=== PATIENT | female | born 1990 | race Caucasian/White ===

== ENCOUNTER 2019-03-29 06:40 | Emergency (ER) | payer OTHER ==
[~2019-03-29] VITALS: Ht 157.5 cm; Wt 52.3 kg
[2019-03-29 07:15] LABS: GLUCOSE, URINE (UA) NEGATIVE (NEGATIVE); KETONES,URINE TRACE mg/dL (NEGATIVE); LEUKOCYTE ESTERASE ,URINE LARGE (NEGATIVE); NITRATE,URINE POSITIVE (NEGATIVE); OCCULT BLOOD,URINE LARGE (NEGATIVE); PH,URINE 5.5 (5.0-8.0); PROTEIN,URINE SEE CONFIRM (NEGATIVE)
[2019-03-29 07:16] LABS: APPEARANCE,URINE CLOUDY (CLEAR); BILIRUBIN,URINE PRELIM. POSITIVE (NEGATIVE)
[2019-03-29 07:20] LABS: RBC,URINE Full Field /HPF (0-2); SULFOSALICYLIC ACID,URINE 1+ (Negative)
[2019-03-29 07:21] LABS: BACTERIA,URINE None Seen /HPF (None Seen); SQUAMOUS EPITHELIAL CELL,UR Rare /LPF (None Seen)
[2019-03-29] MEDS ORDERED: ACETAMINOPHEN 500 MG TABLET PO ONE (08:00)
[2019-03-29] MEDS ORDERED: CEPHALEXIN MONOHYDRATE 500 MG CAPSULE PO ONE (08:00)
[2019-03-29] MEDS ORDERED: PHENAZOPYRIDINE HCL 100 MG TABLET PO ONE (08:00)
[2019-03-29 08:58] VITALS: BP 106/75
== END 2019-03-29 08:59 | disposition home or self-care (01) ==
LOC: EMS 06:40
DX: N39.0 Urinary tract infection, site not specified (principal)
CPT/HCPCS: 87086

== ENCOUNTER 2021-08-30 23:12 | Emergency (ER) | payer OTHER ==
[~2021-08-30] VITALS: Ht 162.6 cm; Wt 56.8 kg
[2021-08-30] MEDS ORDERED: ONDANSETRON HCL 4 MG/2 ML VIAL IVP ONE (23:30)
[2021-08-30] MEDS ORDERED: FAMOTIDINE 10 MG/ML 2 ML VIAL IVP ONE (23:30)
[2021-08-30] MEDS ORDERED: MORPHINE SULFATE 2 MG/ML SYRINGE IVP ONE ×2 (23:30→23:45)
[2021-08-30] MEDS ORDERED: SODIUM CHLORIDE 0.9% 1,000 ML IV ONE (23:30)
[2021-08-30] MEDS ORDERED: KETOROLAC TROMETHAMINE 30 MG/ML VIAL IVP ONE (23:30)
[2021-08-30 23:34] LABS: BASOPHILS % (AUTO) 0.2 % (0.0-2.0); EOSINOPHILS % (AUTO) 2.5 % (1.0-6.0); HEMATOCRIT 42.7 % (36-46); HEMOGLOBIN 14.5 g/dL (12.0-16.0); LYMPHOCYTES # (AUTO) 0.9 K/uL (1.0-4.8); LYMPHOCYTES % (AUTO) 10.6 % (22.0-44.0); MEAN CORPUSCULAR HEMOGLOBIN 31.7 pg (26.0-34.0); MEAN CORPUSCULAR HGB CONC 34.1 G/dL (31.0-37.0); MEAN CORPUSCULAR VOLUME 93 fL (80-100); MONOCYTES # (AUTO) 0.6 K/uL (0.1-1.0); MONOCYTES % (AUTO) 6.6 % (2.0-9.0); NEUTROPHILS # (AUTO) 6.8 K/uL (1.8-7.7); NEUTROPHILS % (AUTO) 80.1 % (40.0-70.0); PLATELET COUNT (AUTO) 272 K/uL (150-450); RED BLOOD CELL COUNT(AUTO) 4.59 MIL/uL (4.00-5.20); RED CELL DISTRIBUTION WIDTH 13.3 % (11.5-14.5)
[2021-08-30 23:52] LABS: ANION GAP 9 mmol/L (8-16); CALCIUM, TOTAL 8.7 mg/dL (8.8-10.5); CARBON DIOXIDE 25 mmol/L (22-29); CHLORIDE 102 mmol/L (98-107); GLOMERULAR FILTR. RATE CALC > 60 mL/min (>60); GLUCOSE,RANDOM 114 mg/dL (70-110); POTASSIUM 3.8 mmol/L (3.5-5.1); UREA NITROGEN, BLOOD 23 mg/dL (7-18)
[2021-08-31] MEDS ORDERED: MAG HYDROX/AL HYDROX/SIMETH 30 ML SUSP UDCUP PO ONE
[2021-08-31] MEDS ORDERED: IOHEXOL 350 MG/ML 100 ML VIAL ONE (00:01)
[2021-08-31] MEDS ORDERED: SODIUM CHLORIDE 0.9% 100 ML ONE (00:01)
[2021-08-31 00:04] LABS: ALANINE AMINOTRANSFERASE 42 U/L (12-78); ALKALINE PHOSPHATASE 101 U/L (46-116); ASPARTATE AMINOTRANSFERASE 57 U/L (15-37); BILIRUBIN,TOTAL 0.8 mg/dL (0.1-1.0); HCG,QUANTITATIVE < 1 mIU/mL (0-6)
[2021-08-31 00:17] LABS: LIPASE 148 U/L (73-393)
[2021-08-31] MEDS ORDERED: SODIUM CHLORIDE 0.9% 1,000 ML IV ONE (01:00)
[2021-08-31] MEDS ORDERED: KETOROLAC TROMETHAMINE 30 MG/ML VIAL IVP ONE (01:00)
[2021-08-31] MEDS ORDERED: METOCLOPRAMIDE HCL 5 MG/ML 2 ML VIAL IVP ONE (01:30)
[2021-08-31] MEDS ORDERED: DiphenhydrAMINE HCL 50 MG/ML VIAL IVP ONE (01:30)
[2021-08-31 02:15] VITALS: BP 102/57
[2021-08-31] MEDS ORDERED: ONDA-104 PO (02:29)
[2021-08-31] MEDS ORDERED: AMOX1TAB16 PO (02:29)
[2021-08-31] MEDS ORDERED: AMOX TR/POT CLAV 875 MG/125 MG TABLET PO ONE (02:30)
[2021-08-31 03:08] LABS: APPEARANCE,URINE CLEAR (CLEAR); BILIRUBIN,URINE NEGATIVE (NEGATIVE); GLUCOSE, URINE (UA) NEGATIVE (NEGATIVE); KETONES,URINE NEGATIVE (NEGATIVE); LEUKOCYTE ESTERASE ,URINE NEGATIVE (NEGATIVE); NITRATE,URINE NEGATIVE (NEGATIVE); OCCULT BLOOD,URINE NEGATIVE (NEGATIVE); PH,URINE 7.5 (5.0-8.0); PROTEIN,URINE TRACE mg/dL (NEGATIVE); UROBILINOGEN,URINE <=1.0 mg/dL (<=1.0)
[2021-08-31 05:13] LABS: SODIUM SERUM 136 mmol/L (136-145)
[2021-08-31 05:35] LABS: SPECIFIC GRAVITIY, URINE > 1.030 (1.003-1.030)
[2021-08-31 06:34] LABS: BACTERIA,URINE None Seen /HPF (None Seen); RBC,URINE None Seen /HPF (0-2); SQUAMOUS EPITHELIAL CELL,UR Few /LPF (None Seen); WBC,URINE None Seen /HPF (0-5)
== END 2021-08-31 02:52 | disposition home or self-care (01) ==
LOC: EMS 23:15
DX: K52.9 Noninfective gastroenteritis and colitis, unspecified (principal)
CPT/HCPCS: 36415; 71045; 74177; 76700; 80053; 81001; 83605; 83690; 84484; 84702; 85025; 93005; 96361; 96374; 96375 ×2; 96376; 99285; J1200; J1885 ×2; J2270; J2405; J2765; J3490; J7030; J7050; Q9967

== ENCOUNTER 2022-11-03 12:18 | Emergency (ER) | payer OTHER ==
[~2022-11-03] VITALS: Ht 160 cm; Wt 68.2 kg
[~2022-11-03 12:18] MED LIST: AMOX1TAB16 PO; ONDA-104 PO
[2022-11-03] MEDS ORDERED: CYCL10TA16 PO (12:25)
[2022-11-03 13:02] VITALS: BP 106/69
[2022-11-03] MEDS ORDERED: HYDROCODONE/ACETAMINOPHEN 10-325 MG TABLET PO ONE (13:30)
[2022-11-03] MEDS ORDERED: KETOROLAC TROMETHAMINE 60 MG/2 ML VIAL IM ONE (13:30)
[2022-11-03] MEDS ORDERED: ONDANSETRON HCL 4 MG TABLET PO ONE (13:30)
[2022-11-03] MEDS ORDERED: HYDR-4072 PO (13:38)
[2022-11-03] MEDS ORDERED: ONDA-104 PO (13:38)
[2022-11-03] MEDS ORDERED: IBUP-1554 PO (13:38)
== END 2022-11-03 14:00 | disposition home or self-care (01) ==
LOC: EMS 12:29
DX: M62.838 Other muscle spasm (principal); Z88.5 Allergy status to narcotic agent
CPT/HCPCS: 99283; 96372; J1885; Q0162

== ENCOUNTER 2023-03-15 14:52 | Emergency (ER) | payer MEDICAID, OTHER ==
[~2023-03-15] VITALS: Ht 160 cm; Wt 68.2 kg
[~2023-03-15 14:52] MED LIST changes: -AMOX1TAB16 PO; +ETON68IM4 SD
[2023-03-15 15:00] VITALS: TEMP 98.2
[2023-03-15] MEDS ORDERED: LORA-1000 PO (15:02)
[2023-03-15 17:02] VITALS: BP 124/74; PULSE 83; RESP 16
[2023-03-15] MEDS ORDERED: IBUP-1554 PO (17:23)
== END 2023-03-15 18:38 | disposition home or self-care (01) ==
LOC: EMS 14:52
DX: S13.4XXA Sprain of ligaments of cervical spine, initial encounter (principal); S40.012A Contusion of left shoulder, initial encounter; F41.9 Anxiety disorder, unspecified; Z90.49 Acquired absence of other specified parts of digestive tract; Z98.890 Other specified postprocedural states; Z88.6 Allergy status to analgesic agent; V49.9XXA Car occupant (driver) (passenger) injured in unspecified traffic accident, initial encounter; Y93.89 Activity, other specified; Y92.89 Other specified places as the place of occurrence of the external cause; Y99.8 Other external cause status
CPT/HCPCS: 72040; 72070; 72100; 99284

== ENCOUNTER 2023-06-11 19:08 | Emergency (ER) | payer OTHER ==
[~2023-06-11] VITALS: Ht 160 cm; Wt 70.0 kg
[~2023-06-11 19:08] MED LIST changes: +IBUP-1554 PO; +LORA-1000 PO; -ONDA-104 PO
[2023-06-11 19:38] VITALS: TEMP 98.2
[2023-06-11 21:39] VITALS: BP 116/65; PULSE 82; RESP 18
== END 2023-06-11 22:16 | disposition left against medical advice (07) ==
LOC: EMS 19:09
DX: H92.01 Otalgia, right ear (principal); Z53.21 Procedure and treatment not carried out due to patient leaving prior to being seen by health care provider
CPT/HCPCS: 99281; Z7502

== ENCOUNTER 2023-11-23 00:22 | Emergency (ER) | payer OTHER ==
[~2023-11-23] VITALS: Ht 160 cm; Wt 70.9 kg
[2023-11-23 00:49] VITALS: BP 103/65; PULSE 76; RESP 16; TEMP 97.9
[2023-11-23 01:45] LABS: COVID AG,FIA SOURCE NASAL SWAB
[2023-11-23 02:08] LABS: INFLUENZA TYPE A NEGATIVE FOR TYPE A (NEGATIVE); INFLUENZA TYPE B NEGATIVE FOR TYPE B (NEGATIVE)
[2023-11-23 02:09] LABS: RAPID GROUP A STREP NEGATIVE (NEGATIVE); SARS-COV2 (COVID) ANTIGEN,FIA Negative (Negative)
[2023-11-23] MEDS: ACETAMINOPHEN 500 MG TABLET PO ONE (03:33)
[2023-11-23] MEDS: AMOX TR/POT CLAV 875 MG/125 MG TABLET PO ONE (03:33)
[2023-11-23] MEDS ORDERED: AMOX1TAB16 PO (03:36)
[2023-11-23] MEDS ORDERED: IBUP-1492 PO (03:36)
[2023-11-23] MEDS ORDERED: ACET-3385 PO (03:36)
== END 2023-11-23 03:55 | disposition home or self-care (01) ==
LOC: EMS 00:23
DX: H66.93 Otitis media, unspecified, bilateral (principal); F41.9 Anxiety disorder, unspecified; Z90.49 Acquired absence of other specified parts of digestive tract; Z88.6 Allergy status to analgesic agent; Z20.822 Contact with and (suspected) exposure to COVID-19
CPT/HCPCS: 87430; 87804; 99283

== ENCOUNTER 2024-01-04 21:01 | Emergency (ER) | payer OTHER ==
[~2024-01-04] VITALS: Ht 160 cm; Wt 70.5 kg
[~2024-01-04 21:01] MED LIST changes: +ACET-3385 PO; +AMOX-457 PO; +IBUP-1492 PO
[2024-01-04 21:04] VITALS: TEMP 97.5
[2024-01-04 21:58] LABS: BASOPHILS % (AUTO) 0.3 % (0.0-2.0); EOSINOPHILS % (AUTO) 0.1 % (1.0-6.0); HEMATOCRIT 42.2 % (36-46); HEMOGLOBIN 14.1 g/dL (12.0-16.0); LYMPHOCYTES # (AUTO) 0.8 K/uL (1.0-4.8); LYMPHOCYTES % (AUTO) 11.1 % (22.0-44.0); MEAN CORPUSCULAR HEMOGLOBIN 31.4 pg (26.0-34.0); MEAN CORPUSCULAR HGB CONC 33.3 G/dL (31.0-37.0); MEAN CORPUSCULAR VOLUME 94 fL (80-100); MONOCYTES # (AUTO) 0.3 K/uL (0.1-1.0); MONOCYTES % (AUTO) 4.2 % (2.0-9.0); NEUTROPHILS # (AUTO) 6.1 K/uL (1.8-7.7); NEUTROPHILS % (AUTO) 84.3 % (40.0-70.0); PLATELET COUNT (AUTO) 241 K/uL (150-450); RED BLOOD CELL COUNT(AUTO) 4.47 MIL/uL (4.00-5.20); RED CELL DISTRIBUTION WIDTH 13.5 % (11.5-14.5); WHITE BLOOD COUNT (AUTO) 7.3 K/uL (4.5-11.0)
[2024-01-04] MEDS: ONDANSETRON HCL 4 MG TABLET PO ONE (21:58)
[2024-01-04 22:07] LABS: ANION GAP 7 mmol/L (8-16); CALCIUM, TOTAL 9.4 mg/dL (8.8-10.5); CARBON DIOXIDE 28 mmol/L (22-29); CHLORIDE 106 mmol/L (98-107); CREATININE 0.84 mg/dL (0.60-1.30); GLOMERULAR FILTR. RATE CALC > 60 mL/min (>60); GLUCOSE,RANDOM 110 mg/dL (70-110); POTASSIUM 4.5 mmol/L (3.5-5.1); SODIUM SERUM 141 mmol/L (136-145); UREA NITROGEN, BLOOD 23 mg/dL (7-18)
[2024-01-04] MEDS: SODIUM CHLORIDE 0.9% 1,000 ML IV ONE (23:11)
[2024-01-05] MEDS: METOCLOPRAMIDE HCL 5 MG/ML 2 ML VIAL IVP ONE (00:03)
[2024-01-05 01:15] VITALS: BP 105/64; PULSE 68; RESP 16
== END 2024-01-05 02:10 | disposition home or self-care (01) ==
LOC: EMS 21:01
DX: S16.1XXA Strain of muscle, fascia and tendon at neck level, initial encounter (principal); M62.838 Other muscle spasm; F41.9 Anxiety disorder, unspecified; Z90.49 Acquired absence of other specified parts of digestive tract; Z98.890 Other specified postprocedural states; Z88.6 Allergy status to analgesic agent; X58.XXXA Exposure to other specified factors, initial encounter; Y93.89 Activity, other specified; Y92.89 Other specified places as the place of occurrence of the external cause; Y99.8 Other external cause status
CPT/HCPCS: 99285; 96361; 80048; 84703; 85025; 36415; 72040; 96374; Q0162; J7030; J2765

== ENCOUNTER 2024-05-12 21:53 | Emergency (ER) | payer OTHER ==
[2024-05-25] MEDS ORDERED: HEPARIN SODIUM,PORCINE 5,000 UNITS/ML VIAL ONE (12:32)
[2024-05-25] MEDS ORDERED: TICAGRELOR 90 MG TABLET ONE (12:32)
== END 2024-05-12 21:54 | disposition left against medical advice (07) ==
LOC: EMS 21:54
DX: R04.2 Hemoptysis (principal); Z53.21 Procedure and treatment not carried out due to patient leaving prior to being seen by health care provider
CPT/HCPCS: J1644